=== PATIENT | male | born 1985 | race Hispanic/Latino ===

== ENCOUNTER 2018-07-06 08:31 | Emergency (ER) | payer OTHER ==
[2018-07-06 08:42] VITALS: O2SAT 97; BMI 23.6
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
[2018-07-06 10:41] VITALS: BP 138/72; PULSE 86; RESP 16; TEMP 97.1
== END 2018-07-06 10:35 | disposition home or self-care (01) ==
LOC: H.ER 08:31
DX: F19.10 Other psychoactive substance abuse, uncomplicated (principal)